=== PATIENT | female | born 1975 | race Caucasian/White ===

== ENCOUNTER 2023-07-25 16:55 | Emergency (ER) | payer BC, SELFPAY ==
[2023-07-25 16:56] VITALS: BP 133/82
[2023-07-25 17:41] VITALS: BMI 40.2
[2023-07-25 17:49] LABS: Urine Albumin Negative (Neg - Trace); Urine Bilirubin Negative (Negative); Urine Character Clear (Clear); Urine Color Yellow; Urine Glucose Negative (Negative); Urine Ketone Negative (Negative); Urine Leukocyte Negative (Negative); Urine Nitrite Negative (Negative); Urine Occult Blood Negative (Negative); Urine Specific Gravity 1.015 (<1.030); Urine Urobilinogen Negative (Neg - 1+)
[2023-07-25 17:50] LABS: % Basophils 0.5 % (0-2); % Eosinophils 1.6 % (0-6); % Immature Granulocytes 0.3 % (0-0.5); % Monocytes 7.2 % (1.7-9.3); % Neutrophils 53.4 % (42.2-75.2); Absolute Basophils 0.1 10^3/uL (0-0.2); Absolute Eosinophils 0.2 10^3/uL (0-0.7); Absolute Lymphocytes 3.6 10^3/uL (1.2-3.4); Absolute Monocytes 0.7 10^3/uL (0.1-0.6); Absolute Neutrophils 5.1 10^3/uL (1.4-6.5); Hematocrit 36.1 % (37.0-47.0); Hemoglobin 11.8 g/dL (12.0-16.0); Mean Corp Hgb Conc. 32.7 g/dL (33.0-37.0); Mean Corpuscular Hgb 28.3 pg (27.0-31.0); Mean Corpuscular Volume 86.6 fL (81.0-99.0); Mean Platelet Volume 11.5 fL (7.4-10.4); Nucleated Red Blood Cells % 0 %; Platelet Count 327 10^3/uL (130-400); Red Blood Cell Count 4.17 10^6/uL (4.20-5.40); Red Cell Dist. Width 15.8 % (11.5-14.5); White Blood Cell Count 9.6 10^3/uL (4.8-10.8)
[2023-07-25 18:06] LABS: ALT (SGPT) 23 U/L (0-35); AST (SGOT) 29 U/L (14-36); Albumin 4.1 g/dl (3.5-5.0); Alkaline Phosphatase 81 U/L (38-126); Blood Urea Nitrogen 12 mg/dl (7-17); Calcium 8.9 mg/dl (8.4-10.2); Carbon Dioxide 23 mmol/L (22-30); Chloride 109 mmol/L (98-107); Estimated Creatinine Clearance 124 ml/min; Glucose 91 mg/dl (70-99); Lipase 84 U/L (23-300); Potassium 3.7 mmol/L (3.5-5.1); Sodium 138 mmol/L (135-145); Total Bilirubin 0.3 mg/dl (0.2-1.3); eGFR > 60.00
--- NOTE | 2023-07-25 19:17 | ED.GENMED ---
History of Present Illness
General
Chief Complaint: Flank Pain
Source: patient
Time Seen by Provider: 07/25/23 19:05
Travel History
Have you had any contact with someone who has COVID-19?: No
Do you have any symptoms of coronavirus? Fever > 100 degrees, chills, cough, shortness of breath, sore throat, loss of taste or smell, muscle aches, or headache?: No
History of Present Illness
History of Present Illness:
This patient is a 47-year-old female presents emergency department with right-sided back pain that radiates to her groin that started yesterday evening. She went to bed slept through the night and awoke with the same pain which continues. It waxes
and wanes in intensity and she says she feels that she cannot get comfortable. There are no exacerbating relieving factors. She notes nausea without vomiting, fever, chills, chest pain, dyspnea, recent trauma or falls, urinary symptoms. She did
note a few episodes of loose stool today without blood. She did eat today less than usual. She denies vaginal discharge or bleeding. She describes the pain as sometimes 'sharp' and sometimes 'dull'. She states that the pain is somewhat
reminiscent of prior kidney stones.
Past History
Past History
ED Past Medical History: Asthma, Fibromyalgia, GERD, Hypothyroidism and Other (migraines, irritable bowel,PNA, Kidney stones)
ED Past Surgical History: Cholecystectomy (October of 2009) and Other (Carpal tunnels surgery in 1994, Gastric bypass)
Social History
Tobacco: Former smoker
Alcohol: Occasional
Drug: None
Personal: Single
Living: with family
Family History
Family History: Negative Diabetes, Hypertension, Early CAD, Asthma or Cancer
Phy Exam
Physical Exam
Physical Exam:
GENERAL: Alert , in no apparent distress
EYE: pupils equal and reactive
NECK: Supple, no significant adenopathy.
ENT: o/p clr, mmm.
CARDIAC: Regular rate and rhythm .
LUNGS: Clear breath sounds bilaterally, no acute respiratory distress, no wheezes/rales/rhonchi
ABDOMEN: Soft, without focal tenderness, no r/g, no cvat
NEUROLOGICAL: Alert and oriented, no focal neuro deficits
SKIN: Warm and dry, skin intact.
MUSCULOSKELETAL: No edema, well perfused.
PSYCH: Normal and appropriate interaction.
Course
Orders/Labs/Results
Orders:
Orders
07/25/23 17:41
Complete Blood Count/With Diff Urgent
Comprehensive Metabolic Panel Urgent
Lipase Urgent
Urinalysis Reflex To Culture Urgent
Date Specimen was Collected: 07/25/23
Time Specimen was Collected: 17:34
07/25/23 19:17
CT Abd/pel Without Iv Or Oral Stat
Comment:
Reason For Exam: R flank/groin pain
Abnormal Lab Results
07/25/23
17:41
RBC 4.17 L 10^6/uL
(4.20-5.40)
Hgb 11.8 L g/dL
(12.0-16.0)
Hct 36.1 L %
(37.0-47.0)
MCHC 32.7 L g/dL
(33.0-37.0)
RDW 15.8 H %
(11.5-14.5)
MPV 11.5 H fL
(7.4-10.4)
Absolute Lymphs (auto) 3.6 H 10^3/uL
(1.2-3.4)
Absolute Monos (auto) 0.7 H 10^3/uL
(0.1-0.6)
Chloride 109 H mmol/L
(98-107)
07/25/23 17:41
07/25/23 17:41
Vital Signs
Initial and Last Documented VS:
Initial Vital Signs
Temp Pulse Resp BP Pulse Ox
98.5 F 72 18 133/82 98
07/25/23 16:56 07/25/23 16:56 07/25/23 16:56 07/25/23 16:56 07/25/23 16:56
Last Documented Vital Signs
Temp Pulse Resp BP Pulse Ox
98.5 F 72 18 133/82 98
07/25/23 16:56 07/25/23 16:56 07/25/23 16:56 07/25/23 16:56 07/25/23 16:56
*Critical Care Note
Total Time (30-74mins, 75-104mins- exclusive of procedures): Not Applicable
Update Note
Update Note:
Patient presents to the Emergency Department with ____right-sided back and groin pain
Number and Complexity of Problems Addressed at the Encounter
� Chronic conditions affecting care:
� Acute Exacerbation and/or Progression of Chronic Illness:
� Differential Diagnosis includes: But not limited to musculoskeletal etiology, kidney stone, pyelonephritis, hernia, etc.
Amount and/or Complexity of Data to be Reviewed and Analyzed
� I performed an independent evaluation of and my interpretation is:
EKG:
CT:
Xrays:
Laboratory Studies: Generally unremarkable
Other: UA without blood or infection
� Review of other/old records reveals:
� Clinical information was obtained by an independent historian: who is at bedside
� Prescriptions/Medications Considered but not given: Considered Toradol for pain however patient states it has not worked in the past and we also reconsider given her history of gastric bypass. Patient declines any other pain
medication at this time including narcotics.
� Further testing considered but not performed:
Risk of Complications and/or Morbidity or Mortality of Patient Management
� Social determinants of health affecting care:
� Discussion with other providers (PCP, Hospitalists, Consultants, etc):
� Escalation of care including admission/observation vs risk of discharge considered: 9:51 PM patient comfortable, does not appear in great distress, nontoxic, and is comfortable with plan to go home given workup unremarkable at
this time, will follow-up with her doctor promptly.
ED Attending Note
-
Portions of this chart may have been created with voice recognition software.� Occasional wrong word or��sound alike� substitutions may have occurred due to the inherent limitations of voice recognition software.
Discharge Plan
Departure
Patient Disposition: Home (Routine Discharge)
Date of Disposition: 07/25/23
Time of Disposition: 21:51
Patient with high blood pressure during this ER visit?: Yes
Condition: Good
Discharge Problem:
Abdominal pain
Instructions: Abdominal Pain, Adult ED, BLOOD PRESSURE
Prescriptions:
No Action
multivitamin 1 EACH tablet
1 ea PO DAILY
rizatriptan [Maxalt] 10 MG tablet
10 mg PO DAILY
levothyroxine 125 MCG tablet
125 mcg PO DAILY
montelukast 10 MG tablet
10 mg PO DAILY
albuterol sulfate 1 PUFF HFA aerosol inhaler
2 puff inhalation QID
Referrals:
Micah Gil DO [Family Provider] - Next open appointment
Activity Restrictions/Additional Instructions:
IF YOU DEVELOP INCREASING NEW OR PERSISTENT PAIN, ANY NAUSEA, VOMITING, FEVER, CHILLS, CHEST PAIN, SHORTNESS OF BREATH, OR OTHER WORRISOME SIGNS, PLEASE RETURN TO THE ER IMMEDIATELY
Interventions
Interventions:
*Risk Screen - Suicide Last Done: 07/25/23 16:56
*General Assessment Last Done: 07/25/23 16:56
*Neglect/Abuse Screening Last Done: 07/25/23 16:56
ED- Fall Risk Assessment Last Done: 07/25/23 19:13
*ED COVID-19 Vaccine History Last Done: 07/25/23 16:56
ZH-Usxrcv-Rebvlssioj Assessment Last Done: 07/25/23 19:13
ED-Female Genitourinary Assessment Last Done: 07/25/23 17:55
[2023-07-25 22:01] VITALS: BP 124/70
== END 2023-07-25 22:03 | disposition home or self-care (01) ==
LOC: EMR 16:55
PROVIDERS: Emergency Medicine; EMERGENCY PHYSICIAN Emergency Medicine; FAMILY PHYSICIAN Family Medicine
DX: R10.9 Unspecified abdominal pain (principal); M54.9 Dorsalgia, unspecified; J45.909 Unspecified asthma, uncomplicated; M79.7 Fibromyalgia; K21.9 Gastro-esophageal reflux disease without esophagitis; E03.9 Hypothyroidism, unspecified; K58.9 Irritable bowel syndrome, unspecified; Z87.891 Personal history of nicotine dependence; Z90.49 Acquired absence of other specified parts of digestive tract; Z98.84 Bariatric surgery status
CPT/HCPCS: 99284; 74176; 80053; 81003; 83690; 85025

== ENCOUNTER → 2023-09-04 14:44 | Outpatient (REF) | payer BC, SELFPAY | LOC: HWRAD 14:44 | PROVIDERS: ATTENDING PHYSICIAN Advanced Practice Midwife; FAMILY PHYSICIAN Family Medicine | DX: R10.2 Pelvic and perineal pain (principal); Z12.31 Encounter for screening mammogram for malignant neoplasm of breast | CPT/HCPCS: 76830; 76856; 77063; 77067 ==

== ENCOUNTER → 2025-01-30 10:12 | Outpatient (REF) | payer BC, SELFPAY | LOC: RAD 10:12 | PROVIDERS: ATTENDING PHYSICIAN Family Medicine; FAMILY PHYSICIAN Family Medicine | DX: N20.2 Calculus of kidney with calculus of ureter (principal) | CPT/HCPCS: 74176 ==

== ENCOUNTER → 2025-04-05 08:42 | Outpatient (REF) | payer BC, SELFPAY | LOC: EMG 08:42 | PROVIDERS: ATTENDING PHYSICIAN Family Medicine | DX: M51.362 Other intervertebral disc degeneration, lumbar region with discogenic back pain and lower extremity pain (principal) | CPT/HCPCS: 95886; 95910 ==

== ENCOUNTER → 2025-04-21 18:19 | Outpatient (REF) | payer OTHER, BC, SELFPAY | LOC: PAVMRI 18:19 | PROVIDERS: ATTENDING PHYSICIAN Specialist; FAMILY PHYSICIAN Family Medicine | DX: Z98.890 Other specified postprocedural states (principal) | CPT/HCPCS: 73221 ==